=== PATIENT | female | born 2000 | race Two or more races ===

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

== ENCOUNTER 2022-01-05 10:53 | Inpatient (IN) | payer OTHER ==
[~2022-01-05] VITALS: Ht 160 cm; Wt 115.9 kg
[~2022-01-05 10:53] MED LIST changes: -ARIP5TAB8 PO; +BREX3TAB PO; -CEPH500 PO; +FLUO-177 PO; -FLUO-191 PO; +PANT-31 PO
[2022-01-05] MEDS ORDERED: SODIUM CHLORIDE 0.9% 1,000 ML IV ONE ×2 (11:30→14:45)
[2022-01-05 12:09] LABS: BASOPHILS % (AUTO) 0.2 % (0.0-2.0); EOSINOPHILS % (AUTO) 0.3 % (1.0-6.0); HEMATOCRIT 38.2 % (36-46); LYMPHOCYTES % (AUTO) 11.3 % (22.0-44.0); MEAN CORPUSCULAR HEMOGLOBIN 29.1 pg (26.0-34.0); MEAN CORPUSCULAR HGB CONC 33.9 G/dL (31.0-37.0); MEAN CORPUSCULAR VOLUME 86 fL (80-100); MONOCYTES # (AUTO) 1.1 K/uL (0.1-1.0); MONOCYTES % (AUTO) 12.9 % (2.0-9.0); NEUTROPHILS # (AUTO) 6.5 K/uL (1.8-7.7); NEUTROPHILS % (AUTO) 75.3 % (40.0-70.0); PLATELET COUNT (AUTO) 306 K/uL (150-450); RED BLOOD CELL COUNT(AUTO) 4.46 MIL/uL (4.00-5.20); RED CELL DISTRIBUTION WIDTH 12.8 % (11.5-14.5)
[2022-01-05 12:22] LABS: ANION GAP 10 mmol/L (8-16); CALCIUM, TOTAL 9.5 mg/dL (8.8-10.5); CARBON DIOXIDE 27 mmol/L (22-29); CHLORIDE 101 mmol/L (98-107); CREATININE 0.74 mg/dL (0.60-1.30); GLOMERULAR FILTR. RATE CALC > 60 mL/min (>60); GLUCOSE,RANDOM 65 mg/dL (70-110); POTASSIUM 3.8 mmol/L (3.5-5.1); SODIUM SERUM 138 mmol/L (136-145); UREA NITROGEN, BLOOD 11 mg/dL (7-18)
[2022-01-05 12:35] LABS: ALANINE AMINOTRANSFERASE 24 U/L (12-78); ALBUMIN 4.1 g/dL (3.4-5.0); ALKALINE PHOSPHATASE 56 U/L (46-116); ASPARTATE AMINOTRANSFERASE 16 U/L (15-37); BILIRUBIN,TOTAL 0.3 mg/dL (0.1-1.0); HCG,QUANTITATIVE < 1 mIU/mL (0-6); TOTAL PROTEIN, SERUM 7.8 g/dL (6.4-8.2)
[2022-01-05 12:36] LABS: ACETAMINOPHEN < 2 mcg/mL (10-30)
[2022-01-05] MEDS ORDERED: LORazepam 2 MG TABLET PO PRN (12:45)
[2022-01-05] MEDS ORDERED: OLANZapine 5 MG RAPDIS TABLET PO PRN (12:45)
[2022-01-05] MEDS ORDERED: ZOLPIDEM TARTRATE 10 MG TABLET PO PRN (12:45)
[2022-01-05 12:48] LABS: SALICYLATE 0.4 mg/dL (2.8-20.0)
[2022-01-05] MEDS ORDERED: GuaiFENesin/D-METHORPHAN [SUGAR-FREE] 200-20MG/10 ML SYRUP UDCUP PO PRN (13:45)
[2022-01-05] MEDS ORDERED: ACETAMINOPHEN 325 MG TABLET PO PRN ×2 (13:45→14:45)
[2022-01-05] MEDS ORDERED: PROMETHAZINE HCL 25 MG TABLET PO PRN (13:45)
[2022-01-05] MEDS ORDERED: HydrOXYzine PAMOATE 50 MG CAPSULE PO PRN (13:45)
[2022-01-05] MEDS ORDERED: LOPERAMIDE HCL 2 MG CAPSULE PO PRN (13:45)
[2022-01-05] MEDS ORDERED: MAG HYDROX/AL HYDROX/SIMETH ES 30 ML SUSPENSION UDCUP PO PRN (13:45)
[2022-01-05] MEDS ORDERED: TUBERCULIN, PURIFIED PROTEIN DERIVATIVE 5 TU/0.1 ML SYRINGE ID ONE (13:45)
[2022-01-05] MEDS ORDERED: MAGNESIUM HYDROXIDE SUSPENSION 30 ML UDCUP PO PRN ×2 (13:45→14:45)
[2022-01-05] MEDS ORDERED: ONDANSETRON HCL 4 MG/2 ML VIAL IVP PRN (14:45)
[2022-01-05 19:00] LABS: AMPHET/METH SCREEN,URINE NEGATIVE (NEGATIVE); BARBITURATE SCREEN, URINE NEGATIVE (NEGATIVE); BENZODIAZEPINES SCREEN,URINE NEGATIVE (NEGATIVE); CANNABINOID SCREEN,URINE NEGATIVE (NEGATIVE); COCAINE SCREEN,URINE NEGATIVE (NEGATIVE); METHADONE SCREEN, URINE NEGATIVE (NEGATIVE); OPIATE SCREEN,URINE NEGATIVE (NEGATIVE); PHENCYCLIDINE SCREEN,URINE NEGATIVE (NEGATIVE)
[2022-01-05 19:25] LABS: APPEARANCE,URINE HAZY (CLEAR); BILIRUBIN,URINE NEGATIVE (NEGATIVE); GLUCOSE, URINE (UA) NEGATIVE (NEGATIVE); KETONES,URINE NEGATIVE (NEGATIVE); LEUKOCYTE ESTERASE ,URINE LARGE (NEGATIVE); NITRATE,URINE NEGATIVE (NEGATIVE); OCCULT BLOOD,URINE SMALL (NEGATIVE); PROTEIN,URINE NEGATIVE (NEGATIVE); SPECIFIC GRAVITIY, URINE 1.005 (1.003-1.030); UROBILINOGEN,URINE <=1.0 mg/dL (<=1.0)
[2022-01-05 19:40] LABS: RBC,URINE 0-2 /HPF (0-2)
[2022-01-05 19:41] LABS: BACTERIA,URINE Many /HPF (None Seen); SQUAMOUS EPITHELIAL CELL,UR Few /LPF (None Seen)
[2022-01-05 20:43] VITALS: BP 121/85
[2022-01-05] MEDS: THIAMINE 100 MG TABLET PO SCH (21:00)
[2022-01-05] MEDS: LURASIDONE HCL 40 MG TABLET PO SCH (21:45)
[2022-01-05] MEDS: MELATONIN 5 MG TABLET PO SCH (21:45)
[2022-01-05] MEDS: LITHIUM CARBONATE 300 MG CAPSULE PO SCH (21:45)
[2022-01-05] MEDS: FAMOTIDINE 20 MG TABLET PO SCH (21:45)
[2022-01-06] VITALS (7 sets, daily range): BP systolic 113–131; BP diastolic 65–79
[2022-01-06 06:49] LABS: HEMOGLOBIN A1C 5.5 % (3.8-5.6)
[2022-01-06 07:00] LABS: ALANINE AMINOTRANSFERASE 25 U/L (12-78); ALKALINE PHOSPHATASE 52 U/L (46-116); ANION GAP 6 mmol/L (8-16); ASPARTATE AMINOTRANSFERASE 19 U/L (15-37); BILIRUBIN,TOTAL 0.5 mg/dL (0.1-1.0); CALCIUM, TOTAL 9.3 mg/dL (8.8-10.5); CARBON DIOXIDE 31 mmol/L (22-29); CHLORIDE 101 mmol/L (98-107); CHOL/HDL RATIO 1.8 (3.9-5.7); CHOLESTEROL 181 mg/dL (131-200); CREATININE 0.91 mg/dL (0.60-1.30); FREE T4 (FREE THYROXINE) 1.35 ng/dL (0.76-1.46); GLOMERULAR FILTR. RATE CALC > 60 mL/min (>60); GLUCOSE,RANDOM 95 mg/dL (70-110); HDL CHOLESTEROL 102 mg/dL (40-60); LDL CHOL (CALC.) 69 mg/dL (0-130); POTASSIUM 3.9 mmol/L (3.5-5.1); SODIUM SERUM 138 mmol/L (136-145); THYROID STIMULATING HORMONE 1.07 uIU/mL (0.36-3.74); TOTAL PROTEIN, SERUM 7.5 g/dL (6.4-8.2); TRIGLYCERIDES 49 mg/dL (15-150); UREA NITROGEN, BLOOD 10 mg/dL (7-18)
[2022-01-06] MEDS: LITHIUM CARBONATE 300 MG CAPSULE PO SCH ×2 (09:15→16:04)
[2022-01-06] MEDS: NALTREXONE HCL 50 MG TABLET PO SCH (09:15)
[2022-01-06] MEDS: OMEGA-3/DHA/EPA/FISH OIL 1,000 MG CAPSULE PO SCH (09:15)
[2022-01-06] MEDS: FAMOTIDINE 20 MG TABLET PO SCH ×2 (09:16→21:47)
[2022-01-06] MEDS: MULTIVITAMINS WITH MINERALS, THERAPEUTIC TABLET PO SCH (09:16)
[2022-01-06] MEDS: THIAMINE 100 MG TABLET PO SCH ×2 (09:16→21:47)
[2022-01-06] MEDS: FOLIC ACID 1 MG TABLET PO SCH (09:16)
[2022-01-06] MEDS: FLUoxetine HCL 20 MG CAPSULE PO SCH (09:16)
[2022-01-06] MEDS ORDERED: SODIUM CHLORIDE 0.9% 250 ML IV ONE (14:55)
[2022-01-06] MEDS: CefTRIAXone 1 GM/DEXTROSE 50 ML IV SCH (14:58)
[2022-01-06] MEDS: LURASIDONE HCL 40 MG TABLET PO SCH (18:10)
[2022-01-06] MEDS: MELATONIN 5 MG TABLET PO SCH (21:47)
[2022-01-07 04:34] VITALS: BP 107/73
[2022-01-07 08:03] VITALS: BP 117/66
[2022-01-07] MEDS ORDERED: BuPROPion HCL XL 150 MG ER TABLET PO SCH (09:00)
[2022-01-07] MEDS ORDERED: LamoTRIgine 25 MG TABLET PO SCH (09:00)
[2022-01-07] MEDS: NALTREXONE HCL 50 MG TABLET PO SCH (10:04)
[2022-01-07] MEDS: OMEGA-3/DHA/EPA/FISH OIL 1,000 MG CAPSULE PO SCH (10:05)
[2022-01-07] MEDS: MULTIVITAMINS WITH MINERALS, THERAPEUTIC TABLET PO SCH (10:05)
[2022-01-07] MEDS: FAMOTIDINE 20 MG TABLET PO SCH (10:05)
[2022-01-07] MEDS: THIAMINE 100 MG TABLET PO SCH (10:05)
[2022-01-07] MEDS: FOLIC ACID 1 MG TABLET PO SCH (10:05)
[2022-01-07] MEDS: FLUoxetine HCL 20 MG CAPSULE PO SCH (10:06)
[2022-01-07] MEDS ORDERED: SODIUM CHLORIDE 0.9% 250 ML IV ONE (13:18)
[2022-01-07] MEDS: CefTRIAXone 1 GM/DEXTROSE 50 ML IV SCH (13:27)
[2022-01-07 15:07] VITALS: BP 127/107
== END 2022-01-07 15:30 | disposition home or self-care (01) | DRG 918 ==
LOC: EMS 10:53 → 5S 14:32 → 6N 01-06 20:45
PROVIDERS: ADMIT Internal Medicine; ATTEND Internal Medicine
DX: T45.0X2A Poisoning by antiallergic and antiemetic drugs, intentional self-harm, initial encounter (principal); E44.0 Moderate protein-calorie malnutrition; N39.0 Urinary tract infection, site not specified; Z68.42 Body mass index [BMI] 45.0-49.9, adult; T14.91XA Suicide attempt, initial encounter; F31.9 Bipolar disorder, unspecified; E66.01 Morbid (severe) obesity due to excess calories; Z86.59 Personal history of other mental and behavioral disorders; Y92.89 Other specified places as the place of occurrence of the external cause
CPT/HCPCS: 80053; 80061; 81001; 83036; 83735; 84439; 84443; 84702; 85025; 86592; 87086; 93005; 99285; G0378; G0480; G0481; J0696; J7030; J7050; Q9967

== ENCOUNTER 2022-06-14 00:49 | Inpatient (IN) | payer OTHER ==
[~2022-06-14] VITALS: Ht 165.1 cm; Wt 122.5 kg
[~2022-06-14 00:49] MED LIST changes: -BREX3TAB PO
[2022-06-14 01:50] LABS: BASOPHILS % (AUTO) 0.6 % (0.0-2.0); EOSINOPHILS % (AUTO) 2.2 % (1.0-6.0); HEMATOCRIT 38.7 % (36-46); HEMOGLOBIN 12.7 g/dL (12.0-16.0); LYMPHOCYTES # (AUTO) 2.3 K/uL (1.0-4.8); LYMPHOCYTES % (AUTO) 25.8 % (22.0-44.0); MEAN CORPUSCULAR HEMOGLOBIN 28.5 pg (26.0-34.0); MEAN CORPUSCULAR HGB CONC 32.9 G/dL (31.0-37.0); MEAN CORPUSCULAR VOLUME 87 fL (80-100); MONOCYTES # (AUTO) 0.9 K/uL (0.1-1.0); MONOCYTES % (AUTO) 9.5 % (2.0-9.0); NEUTROPHILS # (AUTO) 5.6 K/uL (1.8-7.7); NEUTROPHILS % (AUTO) 61.9 % (40.0-70.0); PLATELET COUNT (AUTO) 319 K/uL (150-450); RED BLOOD CELL COUNT(AUTO) 4.46 MIL/uL (4.00-5.20); RED CELL DISTRIBUTION WIDTH 13.2 % (11.5-14.5)
[2022-06-14 02:02] LABS: ANION GAP 11 mmol/L (8-16); CALCIUM, TOTAL 9.6 mg/dL (8.8-10.5); CARBON DIOXIDE 27 mmol/L (22-29); CHLORIDE 99 mmol/L (98-107); CREATININE 0.78 mg/dL (0.60-1.30); GLUCOSE,RANDOM 105 mg/dL (70-110); POTASSIUM 3.6 mmol/L (3.5-5.1); SODIUM SERUM 137 mmol/L (136-145); UREA NITROGEN, BLOOD 17 mg/dL (7-18)
[2022-06-14 02:03] LABS: GLOMERULAR FILTR. RATE CALC > 60 mL/min (>60)
[2022-06-14 02:08] LABS: ALANINE AMINOTRANSFERASE 46 U/L (12-78); ALBUMIN 4.5 g/dL (3.4-5.0); ALKALINE PHOSPHATASE 62 U/L (46-116); ASPARTATE AMINOTRANSFERASE 32 U/L (15-37); BILIRUBIN,TOTAL 0.2 mg/dL (0.1-1.0); TOTAL PROTEIN, SERUM 7.9 g/dL (6.4-8.2)
[2022-06-14 02:09] LABS: ACETAMINOPHEN < 2 mcg/mL (10-30); INR 0.9 (0.9-1.1); PROTHROMBIN TIME 9.9 SEC (9.4-11.6)
[2022-06-14 02:22] LABS: AMPHET/METH SCREEN,URINE NEGATIVE (NEGATIVE); BARBITURATE SCREEN, URINE NEGATIVE (NEGATIVE); BENZODIAZEPINES SCREEN,URINE NEGATIVE (NEGATIVE); CANNABINOID SCREEN,URINE NEGATIVE (NEGATIVE); COCAINE SCREEN,URINE NEGATIVE (NEGATIVE); METHADONE SCREEN, URINE NEGATIVE (NEGATIVE); OPIATE SCREEN,URINE NEGATIVE (NEGATIVE)
[2022-06-14 02:23] LABS: PHENCYCLIDINE SCREEN,URINE NEGATIVE (NEGATIVE)
[2022-06-14 02:23] LABS: SALICYLATE 0.8 mg/dL (2.8-20.0)
[2022-06-14] MEDS ORDERED: SODIUM CHLORIDE 0.9% 1,000 ML IV ONE ×2 (03:30→05:15)
[2022-06-14 06:09] LABS: ANION GAP 13 mmol/L (8-16); CALCIUM, TOTAL 8.4 mg/dL (8.8-10.5); CARBON DIOXIDE 24 mmol/L (22-29); CHLORIDE 103 mmol/L (98-107); CREATININE 0.85 mg/dL (0.60-1.30); GLUCOSE,RANDOM 108 mg/dL (70-110); POTASSIUM 4.4 mmol/L (3.5-5.1); SODIUM SERUM 140 mmol/L (136-145); UREA NITROGEN, BLOOD 14 mg/dL (7-18)
[2022-06-14 06:10] LABS: GLOMERULAR FILTR. RATE CALC > 60 mL/min (>60)
[2022-06-14 06:15] LABS: ALANINE AMINOTRANSFERASE 35 U/L (12-78); ALBUMIN 3.8 g/dL (3.4-5.0); ALKALINE PHOSPHATASE 55 U/L (46-116); ASPARTATE AMINOTRANSFERASE 38 U/L (15-37); BILIRUBIN,TOTAL 0.1 mg/dL (0.1-1.0); TOTAL PROTEIN, SERUM 6.8 g/dL (6.4-8.2)
[2022-06-14 06:17] LABS: ACETAMINOPHEN < 2 mcg/mL (10-30)
[2022-06-14] MEDS: SODIUM CHLORIDE 0.9% 1,000 ML IV SCH ×2 (06:17→17:09)
[2022-06-14 07:04] LABS: COVID AG,FIA SOURCE NASAL SWAB
[2022-06-14] MEDS ORDERED: METOCLOPRAMIDE HCL 5 MG/ML 2 ML VIAL IVP ONE (08:00)
[2022-06-14] MEDS: PANTOPRAZOLE SODIUM 40 MG/VIAL IVP SCH ×3 (08:13→20:52)
[2022-06-14] MEDS ORDERED: MAGNESIUM SULFATE 2 GM/WATER 50 ML IV ONE (08:15)
[2022-06-14 12:17] LABS: ALANINE AMINOTRANSFERASE 49 U/L (12-78); ALBUMIN 3.8 g/dL (3.4-5.0); ALKALINE PHOSPHATASE 55 U/L (46-116); ANION GAP 9 mmol/L (8-16); ASPARTATE AMINOTRANSFERASE 40 U/L (15-37); BILIRUBIN,TOTAL 0.2 mg/dL (0.1-1.0); CALCIUM, TOTAL 8.8 mg/dL (8.8-10.5); CARBON DIOXIDE 24 mmol/L (22-29); CHLORIDE 105 mmol/L (98-107); GLUCOSE,RANDOM 127 mg/dL (70-110); POTASSIUM 5.1 mmol/L (3.5-5.1); SODIUM SERUM 138 mmol/L (136-145); TOTAL PROTEIN, SERUM 7.2 g/dL (6.4-8.2); UREA NITROGEN, BLOOD 11 mg/dL (7-18)
[2022-06-14 12:19] LABS: BILIRUBIN,DIRECT < 0.05 mg/dL (0.00-0.20); GLOMERULAR FILTR. RATE CALC > 60 mL/min (>60)
[2022-06-14] MEDS ORDERED: ONDANSETRON HCL 4 MG/2 ML VIAL IVP ONE (16:00)
[2022-06-14 17:57] LABS: ANION GAP 6 mmol/L (8-16); CALCIUM, TOTAL 8.6 mg/dL (8.8-10.5); CARBON DIOXIDE 26 mmol/L (22-29); CHLORIDE 109 mmol/L (98-107); CREATININE 0.86 mg/dL (0.60-1.30); GLUCOSE,RANDOM 91 mg/dL (70-110); POTASSIUM 4.1 mmol/L (3.5-5.1); SODIUM SERUM 141 mmol/L (136-145); UREA NITROGEN, BLOOD 13 mg/dL (7-18)
[2022-06-14 17:58] LABS: GLOMERULAR FILTR. RATE CALC > 60 mL/min (>60)
[2022-06-14 20:46] LABS: ALANINE AMINOTRANSFERASE 49 U/L (12-78); ALBUMIN 3.7 g/dL (3.4-5.0); ALKALINE PHOSPHATASE 53 U/L (46-116); ASPARTATE AMINOTRANSFERASE 31 U/L (15-37); BILIRUBIN,TOTAL 0.2 mg/dL (0.1-1.0)
[2022-06-14 20:47] VITALS: BP 127/68
[2022-06-14] MEDS: SODIUM CHLORIDE 0.45% 1,000 ML IV SCH (20:52)
[2022-06-14 23:52] VITALS: BP 108/76
[2022-06-15 06:02] VITALS: BP 108/55
[2022-06-15 06:23] LABS: BASOPHILS % (AUTO) 0.4 % (0.0-2.0); EOSINOPHILS % (AUTO) 1.2 % (1.0-6.0); HEMOGLOBIN 10.9 g/dL (12.0-16.0); LYMPHOCYTES % (AUTO) 30.6 % (22.0-44.0); MEAN CORPUSCULAR HEMOGLOBIN 28.1 pg (26.0-34.0); MEAN CORPUSCULAR HGB CONC 32.1 G/dL (31.0-37.0); MEAN CORPUSCULAR VOLUME 88 fL (80-100); MONOCYTES # (AUTO) 0.6 K/uL (0.1-1.0); MONOCYTES % (AUTO) 9.9 % (2.0-9.0); NEUTROPHILS # (AUTO) 3.8 K/uL (1.8-7.7); NEUTROPHILS % (AUTO) 57.9 % (40.0-70.0); PLATELET COUNT (AUTO) 247 K/uL (150-450); RED BLOOD CELL COUNT(AUTO) 3.87 MIL/uL (4.00-5.20); RED CELL DISTRIBUTION WIDTH 13.6 % (11.5-14.5)
[2022-06-15] MEDS: SODIUM CHLORIDE 0.45% 1,000 ML IV SCH (06:24)
[2022-06-15 06:33] LABS: ANION GAP 5 mmol/L (8-16); CALCIUM, TOTAL 8.3 mg/dL (8.8-10.5); CARBON DIOXIDE 25 mmol/L (22-29); CHLORIDE 107 mmol/L (98-107); CREATININE 0.69 mg/dL (0.60-1.30); GLUCOSE,RANDOM 98 mg/dL (70-110); POTASSIUM 4.1 mmol/L (3.5-5.1); SODIUM SERUM 137 mmol/L (136-145); UREA NITROGEN, BLOOD 11 mg/dL (7-18)
[2022-06-15 06:52] LABS: GLOMERULAR FILTR. RATE CALC > 60 mL/min (>60)
[2022-06-15] MEDS: PANTOPRAZOLE SODIUM 40 MG/VIAL IVP SCH ×2 (07:45→19:59)
[2022-06-15 10:00] VITALS: BP 121/78
[2022-06-15 16:05] VITALS: BP 109/61
[2022-06-15 19:50] VITALS: BP 125/73
[2022-06-16 00:47] VITALS: BP 121/63
[2022-06-16 04:01] VITALS: BP 127/81
[2022-06-16] MEDS: PANTOPRAZOLE SODIUM 40 MG/VIAL IVP SCH (08:03)
[2022-06-16 08:24] VITALS: BP 137/85
[2022-06-16 12:18] VITALS: BP 122/70
== END 2022-06-16 13:30 | disposition home or self-care (01) | DRG 918 ==
LOC: EMS 00:50 → 5S 18:55
PROVIDERS: ADMIT Internal Medicine; ATTEND Internal Medicine
DX: T39.311A Poisoning by propionic acid derivatives, accidental (unintentional), initial encounter (principal); Z68.41 Body mass index [BMI] 40.0-44.9, adult; F60.3 Borderline personality disorder; F42.9 Obsessive-compulsive disorder, unspecified; E66.9 Obesity, unspecified; Z20.822 Contact with and (suspected) exposure to COVID-19; F31.9 Bipolar disorder, unspecified; R94.31 Abnormal electrocardiogram [ECG] [EKG]; Z91.51 Personal history of suicidal behavior; Z79.899 Other long term (current) drug therapy; Z86.59 Personal history of other mental and behavioral disorders; Y92.89 Other specified places as the place of occurrence of the external cause
CPT/HCPCS: 80048; 80053; 80337; 82248; 83605; 83735; 84484; 84703; 85025; 85610; 85730; 86850; 86900; 86901; 93005; 93306; 99285; C9113; G0378; G0480; G0481; J2405; J2765; J3475; J7030